=== PATIENT | male | born 1970 | race Two or more races ===

== ENCOUNTER 2017-06-23 08:56 | Emergency (ER) | payer BC ==
[~2017-06-23] VITALS: Ht 180.3 cm; Wt 95.3 kg
[2017-06-23] MEDS ORDERED: IBUPROFEN800 MG ORAL (09:47)
--- NOTE | 2017-06-23 09:56 | Emergency Room Report ---
History of Present Illness General Chief Complaint: Lower Extremity Injury Source: Patient Present Illness HPI 47-year-old male walks in with left calf pain Pain since jumped up to catch a Frisbee yesterday and landed on both legs but heard a pop to left calf "like someone shot me there" Pain with ambulation, when patient puts left foot down has pain to left calf on the medial posterior aspect. Took ibuprofen once yesterday with some improvement Denies pain to front of leg ankle or foot No previous injury to area Allergies: Coded Allergies: No Known Allergies (Unverified , 06/23/17) Patient History Past Medical History: none Past Surgical History: none Pertinent Family History: none Immunizations: UTD Reviewed Nursing Documentation: PMH: Agreed, PSxH: Agreed Nursing Documentation-PMH Past Medical History: No Stated History Review of Systems All Other Systems: negative except mentioned in HPI Physical Exam Vital Signs Date Time Temp Pulse Resp B/P (MAP) Pulse Ox O2 Delivery O2 Flow Rate FiO2 06/23/17 09:02 97.9 74 16 133/79 96 Room Air Sp02 EP Interpretation: reviewed, normal General Appearance: normal inspection, well appearing, no apparent distress, alert, GCS 15, non-toxic Head: normocephalic, atraumatic Eyes: bilateral eye PERRL, bilateral eye EOMI ENT: normal ENT inspection, hearing grossly normal, normal voice Neck: normal inspection, full range of motion, supple, no bony tend Respiratory: normal inspection, lungs clear, normal breath sounds, no respiratory distress, no retraction, no wheezing Cardiovascular #1: regular rate, rhythm, no edema Gastrointestinal: normal inspection, normal bowel sounds, non tender, soft, no guarding, no hernia Genitourinary: no CVA tenderness Musculoskeletal: normal inspection, back normal, normal range of motion, Miller' s Sign negative, other - Left calf: Some mild focal tenderness to the posterior medial aspect the left calf. No palpable cord. On dorsiflexion of left foot ankle no abnormal movement of left calf muscle. No joint laxity to left knee or left ankle. Bedside sono does not show soft tissue hematoma or fluid collection. Neurologic: normal inspection, alert, oriented x3, responsive, necktie turner III-XII nml as tested, speech normal Psychiatric: normal inspection, judgement/insight normal, mood/affect normal Skin: normal inspection, normal color, no rash Medical Decision Making Diagnostic Impression: Primary Impression: Muscle strain ER Course Left calf strain No sign of fluid collection or hematoma a bedside ultrasound Unlikely muscle rupture given no abnormal movement or cord or abnormal muscle movement Advised ice and ibuprofen No improvement recommended outpatient MRI primary care followup ER course: Patient has remained stable during ED stay. Patient is to be discharged to home. Prescriptions given are motrin Patient is instructed to follow up with their primary care doctor within 5 days. Strict return precautions discussed with patient such as fever, chills, worsening/severe pain, nausea, vomiting, which may indicate severe illness. Patient verbalizes understanding and agrees with plan. Please note that this Emergency Department Report was dictated using [employer] review analyst technology software, occasionally this can lead to erroneous entry secondary to interpretation by the dictation equipment Last Vital Signs Date Time Temp Pulse Resp B/P (MAP) Pulse Ox O2 Delivery O2 Flow Rate FiO2 06/23/17 09:02 97.9 74 16 133/79 96 Room Air Status: improved Disposition: HOME, SELF-CARE Condition: Improved Scripts Ibuprofen* (MOTRIN*) 800 Mg Tablet 800 MG ORAL THREE TIMES A DAY for calf pain for 7 Days, #30 TAB 0 Refills Prov: ROXANN QUIGLEY M.D. 06/23/17 Patient Instructions: Cryotherapy, [id number] ROXANN QUIGLEY M.D. Jun 23, 2017 09:56
[2017-06-23 10:00] VITALS: BP 142/76
[2017-06-23] MEDS ORDERED: Ketorolac 60mg Inj IM ONE (10:00)
== END 2017-06-23 10:00 | disposition home or self-care (01) ==
LOC: EMR 09:32
DX: S86.112A Strain of other muscle(s) and tendon(s) of posterior muscle group at lower leg level, left leg, initial encounter (principal); W19.XXXA Unspecified fall, initial encounter; Y93.74 Activity, frisbee; Y92.89 Other specified places as the place of occurrence of the external cause
CPT/HCPCS: 96372; 99283